=== PATIENT | female | born 1980 | race Caucasian/White ===

== ENCOUNTER 2016-09-09 11:32 | Observation (INO) | payer OTHER, MEDICAID ==
[~2016-09-09] VITALS: Ht 170.2 cm; Wt 74.7 kg
[2016-09-09] VITALS (9 sets, daily range): BP systolic 98–112; BP diastolic 62–82; PULSE 57–88; RESP 16–20; TEMP 96.1–98; O2SAT 96–100
[~2016-09-09 11:32] MED LIST: LURA20TA PO; XANA1TAB6 PO
[2016-09-09] MEDS ORDERED: LURA20TA PO (11:39)
[2016-09-09] MEDS ORDERED: ALPR.5 PO (11:39)
[2016-09-09] MEDS ORDERED: SERO50TA PO (11:39)
[2016-09-09] MEDS ORDERED: ONDANSETRON HCL 4 MG/2 ML VIAL IVP ONE (11:45)
[2016-09-09] MEDS ORDERED: HYDROmorphone HCL PF 1 MG/ML VIAL IVS ONE ×2 (11:45→13:30)
[2016-09-09] MEDS ORDERED: SODIUM CHLOR 0.9% 1000 ML INJ 1,000 ML IV ONE (11:45)
[2016-09-09] MEDS ORDERED: IOHEXOL 350 MG/ML 10 ML VIAL (for RAD DIAG) IV ONE (12:03)
[2016-09-09 12:20] LABS: AUTOMATED NEUTROPHIL # 4.2 TH/MM3 (1.8-7.7); BASOPHIL # 0.1 TH/MM3 (0-0.2); EOSINOPHIL # 0.1 TH/MM3 (0-0.4); EOSINOPHIL % 1.6 % (0.0-4.0); HEMATOCRIT 40.8 % (35.0-46.0); LYMPH % 23.6 % (9.0-44.0); LYMPHOCYTE # 1.6 TH/MM3 (1.0-4.8); MEAN CELL VOLUME 93.5 FL (80.0-100.0); MEAN CORPUSCULAR HEMOGLOBIN 31.6 PG (27.0-34.0); MEAN CORPUSCULAR HGB CONC 33.8 % (32.0-36.0); MONO % 9.6 % (0.0-8.0); NEUT % 64.2 % (16.0-70.0); RED BLOOD COUNT 4.36 MIL/MM3 (4.00-5.30); RED CELL DISTRIBUTION WIDTH 12.2 % (11.6-17.2); WHITE BLOOD COUNT 6.6 TH/MM3 (4.0-11.0)
--- NOTE | 2016-09-09 12:20 | PD ---
HPI Chief Complaint: Abdominal Pain Time Seen by Provider: 11:38 Travel History International Travel<30 days: No Contact w/Intl Traveler<30days: No Traveled to known affect area: No History of Present Illness HPI The patient was seen and examined in the presence of the nurse. This patient complains of right lower quadrant pain. Duration is 11 hours. Symptoms are severe. She called 911 and the paramedics brought her in screaming. No alleviating factors. She has had a hysterectomy and an appendectomy but her ovaries are in place. She does have history of ovarian cyst. She had 2 episodes of liquid runny diarrhea this morning. She vomited one time. She denies any fever or injury. She is reports compliance with her psychiatric medications. PFS Past Medical History Bipolar Disorder: Yes Depression: Yes Schizophrenia: Yes Tetanus Vaccination: < 5 Years Influenza Vaccination: No ?: Not LMP: 2006 Past Surgical History Appendectomy: Yes Hysterectomy: Yes (PARTIAL) Social History Alcohol Use: No Tobacco Use: Yes (1/2 PPD) Substance Use: No Allergies-Medications (Allergen,Severity, Reaction): Coded Allergies: Lortab (Verified Allergy, Severe, 09/09/16) Morphine (Verified Adverse Reaction, Severe, itching-n/v, 09/09/16) Reported Meds & Prescriptions Reported Meds & Active Scripts Active Reported Seroquel (Quetiapine Fumarate) 50 Mg Tab 50 Mg PO HS Xanax (Alprazolam) 0.5 Mg Tab 0.5 Mg PO Q8H PRN Latuda (Lurasidone) 20 Mg Tab 20 Mg PO HS Review of Systems General / Constitutional: No: Fever Eyes: No: Visual changes HENT: No: Headaches Cardiovascular: No: Chest Pain or Discomfort Respiratory: No: Shortness of Breath Gastrointestinal: Positive: Nausea, Vomiting, Diarrhea, Abdominal Pain Genitourinary: Positive: Pelvic Pain, No: Dysuria Musculoskeletal: No: Pain Skin: No Rash Neurologic: No: Weakness Psychiatric: No: Depression Endocrine: No: Polydipsia Hematologic/Lymphatic: No: Easy Bruising Physical Exam Narrative GENERAL: Well-nourished, well-developed patient screaming with abdominal pain. SKIN: Focused skin assessment reveals no rash and nodules. Skin is Warm and dry. HEAD: Atraumatic. Normocephalic. EYES: Pupils equal and round. No scleral icterus. No injection or drainage. ENT: No nasal bleeding or discharge. Mucous membranes pink and moist. NECK: Trachea midline. No JVD. CARDIOVASCULAR: Regular rate and rhythm. No murmur appreciated. RESPIRATORY: No accessory muscle use. Clear to auscultation. Breath sounds equal bilaterally. GASTROINTESTINAL: Abdomen soft but there is extreme tenderness in the right lower quadrant, nondistended. Hepatic and splenic margins not palpable. MUSCULOSKELETAL: No obvious deformities. No clubbing. No cyanosis. No edema. NEUROLOGICAL: Awake and alert. No obvious cranial nerve deficits. Motor grossly within normal limits. Normal speech. PSYCHIATRIC: Appropriate mood and affect; insight and judgment normal. Data Data Last Documented VS Vital Signs Date Time Temp Pulse Resp B/P Pulse Ox O2 Delivery O2 Flow Rate FiO2 09/09/16 16:00 77 16 112/67 98 Room Air 09/09/16 11:35 97.9 Orders Sodium Chlor 0.9% 1000 Ml Inj (Ns 1000 M (09/09/16 11:45) Ondansetron Inj (Zofran Inj) (09/09/16 11:45) Hydromorphone Pf Inj (Dilaudid Pf Inj) (09/09/16 11:45) Iv Access Insert/Monitor (09/09/16 11:38) Complete Blood Count With Diff (09/09/16 11:38) Comprehensive Metabolic Panel (09/09/16 11:38) Prothrombin Time / Inr (Pt) (09/09/16 11:38) Act Partial Throm Time (Ptt) (09/09/16 11:38) Ct Abd/Pel W Iv Contrast(Rout) (09/09/16 ) Urinalysis - C+S If Indicated (09/09/16 11:51) Ed Urine Pregnancytest Poc (09/09/16 11:51) Iohexol 350 Inj (Omnipaque 350 Inj) (09/09/16 12:03) Hydromorphone Pf Inj (Dilaudid Pf Inj) (09/09/16 13:30) Us Pelvis Comp W Dop Transvag (09/09/16 ) Alprazolam (Xanax) (09/09/16 16:15) Lurasidone (Latuda) (09/09/16 21:00) (Nf) Quetiapine (Seroquel) (09/09/16 21:00) Ketorolac Inj (Toradol Inj) (09/09/16 16:15) Admit Order (Ed Use Only) (09/09/16 16:09) Labs Laboratory Tests Test 09/09/16 09/09/16 12:10 12:40 Prothrombin Time 12.0 SEC Prothromb Time International 1.1 RATIO Ratio Activated Partial 27.7 SEC Thromboplast Time Sodium Level 139 MEQ/L Potassium Level 3.5 MEQ/L Chloride Level 107 MEQ/L Carbon Dioxide Level 24.5 MEQ/L Anion Gap 8 MEQ/L Blood Urea Nitrogen 10 MG/DL Creatinine 0.63 MG/DL Estimat Glomerular Filtration 108 ML/MIN Rate Random Glucose 80 MG/DL Calcium Level 8.2 MG/DL Total Bilirubin 0.7 MG/DL Aspartate Amino Transf 10 U/L (AST/SGOT) Alanine Aminotransferase 27 U/L (ALT/SGPT) Alkaline Phosphatase 58 U/L Total Protein 6.3 GM/DL Albumin 3.2 GM/DL White Blood Count 6.6 TH/MM3 Red Blood Count 4.36 MIL/MM3 Hemoglobin 13.8 GM/DL Hematocrit 40.8 % Mean Corpuscular Volume 93.5 FL Mean Corpuscular Hemoglobin 31.6 PG Mean Corpuscular Hemoglobin 33.8 % Concent Red Cell Distribution Width 12.2 % Platelet Count 81 TH/MM3 Mean Platelet Volume 11.5 FL Neutrophils (%) (Auto) 64.2 % Lymphocytes (%) (Auto) 23.6 % Monocytes (%) (Auto) 9.6 % Eosinophils (%) (Auto) 1.6 % Basophils (%) (Auto) 1.0 % Neutrophils # (Auto) 4.2 TH/MM3 Lymphocytes # (Auto) 1.6 TH/MM3 Monocytes # (Auto) 0.6 TH/MM3 Eosinophils # (Auto) 0.1 TH/MM3 Basophils # (Auto) 0.1 TH/MM3 CBC Comment AUTO DIFF Differential Comment AUTO DIFF CONFIRMED Platelet Estimate LOW Platelet Morphology Comment NORMAL Urine Collection Type CLEAN CATCH Urine Color YELLOW Urine Turbidity CLEAR Urine pH 5.0 Urine Specific [place] 1.035 Urine Protein NEG mg/dL Urine Glucose (UA) NEG mg/dL Urine Ketones 15 mg/dL Urine Occult Blood TRACE Urine Nitrite NEG Urine Bilirubin NEG Urine Leukocyte Esterase NEG Urine RBC 0-3 /hpf Urine WBC 0-2 /hpf Urine Squamous Epithelial > 8 /hpf Cells Microscopic Urinalysis Comment CULT NOT INDICATED Urine Collection Time 12:40 [facility] Medical Decision Making Medical Screen Exam Complete: Yes Emergency Medical Condition: Yes Medical Record Reviewed: Yes Differential Diagnosis Colitis, ovarian torsion, obstruction Narrative Course I have reviewed the patient's electronic medical record. She has been here one time before November 2014 for medication refill request. There is no documentation of prior surgeries. IV placed I gave her 1 mg IV Dilaudid and 4 mg IV Zofran for symptom relief I gave her 1 L normal saline IV bolus CBC is normal Metabolic profile is normal LFTs are normal Coagulation studies are normal Urinalysis will be cultured but does not seem suspicious for infection Urine is negative CT of abdomen and pelvis with IV contrast shows ovarian cystic disease but nothing emergent or would explain her significant pain I did an ultrasound to rule out torsion. Her is no evidence of torsion and is good bilateral ovarian flow of blood. After extensive workup etiology of her pain is unclear. She's had 2 Dilaudid doses and still writhing in pain. She cannot sit up let alone walk She will be a 23 hour observation for intractable abdominal pain I reviewed with hospitalist Diagnosis Primary Impression: Intractable right lower quadrant abdominal pain Admitting Information Admitting Physician Requests: Observation Kenneth Malloy MD September 09, 2016 11:50
[2016-09-09 12:32] LABS: CHLORIDE 107 MEQ/L (98-107); POTASSIUM 3.5 MEQ/L (3.5-5.1); SODIUM (NA) 139 MEQ/L (136-145)
[2016-09-09 12:35] LABS: ANION GAP 8 MEQ/L (5-15); BICARBONATE 24.5 MEQ/L (21.0-32.0)
[2016-09-09 12:36] LABS: APTT (PATIENT) 27.7 SEC (24.3-30.1); BLOOD UREA NITROGEN 10 MG/DL (7-18); INTERNATIONAL NORMALIZED RATIO 1.1 RATIO
[2016-09-09 12:39] LABS: ALT (GPT) 27 U/L (10-53); AST (GOT) 10 U/L (15-37); GLOMERULAR FILTRATION RATE 108 ML/MIN (>89)
[2016-09-09 12:40] LABS: TOTAL BILIRUBIN ADULT 0.7 MG/DL (0.2-1.0)
[2016-09-09 12:41] LABS: ALKALINE PHOSPHATASE 58 U/L (45-117)
--- NOTE | 2016-09-09 12:51 | RADHPO ---
EXAM DATE/TIME: 09/09/2016 11:49 [facility] COMPARISON: No previous studies available for comparison. INDICATIONS : Right lower quadrant pain. Painful urination. IV CONTRAST: 85 cc Omnipaque 350 (iohexol) IV ORAL CONTRAST: No oral contrast ingested. RADIATION DOSE: 10.86 CTDIvol (mGy) MEDICAL HISTORY : Schizophrenia. SURGICAL HISTORY : Appendectomy. Hysterectomy. ENCOUNTER: Initial ACUITY: 1 day PAIN SCALE: 7/10 LOCATION: Right lower quadrant TECHNIQUE: Volumetric scanning of the abdomen and pelvis was performed. Using automated exposure control and ad justment of the mA and/or kV according to patient size, radiation dose was kept as low as reasonably achievable to obtain optimal diagnostic quality images. FINDINGS: LOWER LUNGS: The visualized lower lungs are clear. LIVER: Homogeneous density without lesion. There is no dilation of the biliary tree. No calcified gallston es. SPLEEN: Normal size without lesion. PANCREAS: Within normal limits. KIDNEYS: Normal in size and shape. There is no mass, stone or hydronephrosis. ADRENAL GLANDS: Within normal limits. VASCULAR: There is no aortic aneurysm. BOWEL/MESENTERY: The stomach, small bowel, and colon demonstrate no acute abnormality. There is no free intraperitone al air or fluid. ABDOMINAL WALL: Within normal limits. RETROPERITONEUM: There is no lymphadenopathy. BLADDER: No wall thickening or mass. REPRODUCTIVE: Small bilateral adnexal cysts are seen felt to be ovarian in origin. These measure 2.4 cm on the left and 1.6 cm on the right. No free fluid. Uterus is surgically absent. INGUINAL: There is no lymphadenopathy or hernia. MUSCULOSKELETAL: Within normal limits for patient age. CONCLUSION: 1. No acute abnormality. 2. Bilateral adnexal cysts likely ovarian in nature. These measure 2.4 cm on the left and 1.6 cm on t he right. No free fluid. 3. Prior hysterectomy. Sanya Bolanos Jr., MD on September 09, 2016 at 12:47 Board Certified Radiologist. This report was verified electronically.
[2016-09-09 12:56] LABS: BLOOD, URINE TRACE (NEG); GLUCOSE,URINE NEG (NEG); KETONE, URINE 15 mg/dL (NEG); NITRITE,URINE NEG (NEG)
[2016-09-09 13:01] LABS: HEMO FLAGS AUTO DIFF
[2016-09-09 13:05] LABS: METHOD OF COLLECTION CLEAN CATCH; URINE COLOR YELLOW (YELLW/STRAW); WBC, URINE 0-2 /hpf (0-5)
[2016-09-09 13:06] LABS: COMMENT (UR) CULT NOT INDICATED; CULTURE IF INDICATED CULT NOT INDICATED; RBC, URINE 0-3 /hpf (0-3); SQUAMOUS EPITHELIAL CELL URINE > 8 /hpf (0-5)
[2016-09-09 13:25] LABS: PLATELET COUNT 81 TH/MM3 (150-450); PLATELET ESTIMATE SMEAR LOW (NORMAL); SCAN/DIFF AUTO DIFF CONFIRMED
[2016-09-09 13:26] LABS: PLATELET MORPHOLOGY NORMAL (NORMAL)
--- NOTE | 2016-09-09 15:41 | RADHPO ---
EXAM DATE/TIME: 09/09/2016 14:28 [facility] COMPARISON: No previous studies available for comparison. INDICATIONS : Pelvic pain. MEDICAL HISTORY : Pelvic pain. Bipolar disorder. Schizophrenia. SURGICAL HISTORY : Hysterectomy. Appendectomy. ENCOUNTER: Initial ACUITY: 4-6 days PAIN SCORE: 10/10 LOCATION: Bilateral pelvis MEASUREMENTS: UTERUS: Surgically absent RIGHT OVARY: 3.2 x 1.7 x 2.0 cm LEFT OVARY: 4.5 x 2.2 x 2.4 cm FINDINGS: The uterus is surgical absent. Small bilateral follicular cysts are present. No adnexal masses are id entified. Normal Doppler flow is present bilaterally. CONCLUSION: 1. Hysterectomy 2. No evidence of mass or torsion Zach Dean MD on September 09, 2016 at 15:38 Board Certified Radiologist. This report was verified electronically.
[2016-09-09] MEDS ORDERED: ALPRAZolam 0.5 MG TAB PO PRN (16:15)
[2016-09-09] MEDS ORDERED: ACETAMINOPHEN 325 MG TAB PO PRN (16:15)
[2016-09-09] MEDS ORDERED: ONDANSETRON HCL 4 MG/2 ML VIAL IVP PRN (16:15)
[2016-09-09] MEDS ORDERED: NALOXONE HCL 0.4 MG/ML AMP IV PRN (16:15)
[2016-09-09] MEDS ORDERED: SODIUM CHLORIDE 0.9% FLUSH 10 ML FLUSH IV FLUSH PRN (16:15)
[2016-09-09] MEDS ORDERED: KETOROLAC TROMETHAMINE 30 MG/ML (IVP) VIAL IV PUSH ONE (16:15)
[2016-09-09] MEDS ORDERED: PILL SPLITTER OTHER PRN (16:30)
--- NOTE | 2016-09-09 16:36 | HHI.HP ---
[facility] Service [facility] Primary Care Physician Jarrod Denise MD Admission Diagnosis intract RLQ pain Diagnoses: (1) Intractable right lower quadrant abdominal pain Diagnosis: Principal Chief Complaint: abdominal pain Travel History International Travel<30 Days: No Contact w/Intl Traveler <30 Da: No Traveled to Known Affected Are: No History of Present Illness Written by Jocelyn Galdamez PA-C acting as scribe for Dr. Rodrigues on 09/09/16 at ~ 1630. 35-year-old female with history of bipolar disorder, depression, schizoaffective presents with complaint of abdominal pain. at bedside. Patient states pain started last night 11 PM. Pain came on suddenly. She indicates pain over the right pelvis radiating upward to the right lower quadrant. She states she woke up at 10am this morning and went to the bathroom and states it hurt to have a bowel movement as well as to urinate. She states she had an episode of diarrhea last night as well as this morning. She states she fell over from her chair today because the pain was so bad. She admits to chills but denies any fevers. Denies any nausea or vomiting. She states "my ovaries have always hurt" but indicates this was worse. She states she had pain when the pelvic ultrasound was performed, but denies any vaginal pain. She has chronic vaginal discharge but denies any change in this recently. Denies any pain with intercourse. History of partial hysterectomy and appendectomy. Review of Systems Except as stated in HPI: all other systems reviewed are Neg Past Family Social History Past Medical History Bipolar disorder Depression Schizophrenia Past Surgical History Appendectomy Partial hysterectomy Tubal ligation Reported Medications Reported Seroquel (Quetiapine Fumarate) 50 Mg Tab 50 Mg PO HS Xanax (Alprazolam) 0.5 Mg Tab 0.5 Mg PO Q8H PRN Latuda (Lurasidone) 20 Mg Tab 20 Mg PO HS Doxepin Ranitidine Allergies: Coded Allergies: Lortab (Verified Allergy, Severe, 09/09/16) Morphine (Verified Adverse Reaction, Severe, itching-n/v, 09/09/16) Family History Mother of metastatic breast cancer. Social History Patient smokes one half pack per day of cigarettes; started smoking at age 15. Denies alcohol use. Smokes marijuana. Physical Exam Vital Signs Vital Signs Date Time Temp Pulse Resp B/P Pulse Ox O2 Delivery O2 Flow Rate FiO2 09/09/16 16:00 77 16 112/67 98 Room Air 09/09/16 14:54 74 18 107/65 96 Room Air 09/09/16 13:57 16 09/09/16 13:31 76 20 103/66 100 09/09/16 12:48 88 18 111/77 98 Room Air 09/09/16 12:26 16 09/09/16 12:20 73 16 107/62 100 Room Air 09/09/16 11:35 97.9 82 18 105/82 98 Physical Exam GENERAL: This is a well-nourished, well-developed patient crying in pain. SKIN: No rashes, ecchymoses or lesions. Warm and dry. HEAD: Atraumatic. Normocephalic. NECK: Trachea midline. CARDIOVASCULAR: Regular rate and rhythm without murmurs, gallops, or rubs. RESPIRATORY: Clear to auscultation. Breath sounds equal bilaterally. No wheezes , rales, or rhonchi. GASTROINTESTINAL: Hyperactive bowel sounds. Abdomen soft, nondistended. Tender over right lower quadrant. MUSCULOSKELETAL: No lower extremity edema. NEUROLOGICAL: Awake and alert. Normal speech. PSYCHIATRIC: Crying. Normal judgement. Laboratory Laboratory Tests Test 09/09/16 09/09/16 12:10 12:40 Prothrombin Time 12.0 Prothromb Time International 1.1 Ratio Activated Partial 27.7 Thromboplast Time Sodium Level 139 Potassium Level 3.5 Chloride Level 107 Carbon Dioxide Level 24.5 Anion Gap 8 Blood Urea Nitrogen 10 Creatinine 0.63 Estimat Glomerular Filtration 108 Rate Random Glucose 80 Calcium Level 8.2 Total Bilirubin 0.7 Aspartate Amino Transf 10 (AST/SGOT) Alanine Aminotransferase 27 (ALT/SGPT) Alkaline Phosphatase 58 Total Protein 6.3 Albumin 3.2 White Blood Count 6.6 Red Blood Count 4.36 Hemoglobin 13.8 Hematocrit 40.8 Mean Corpuscular Volume 93.5 Mean Corpuscular Hemoglobin 31.6 Mean Corpuscular Hemoglobin 33.8 Concent Red Cell Distribution Width 12.2 Platelet Count 81 Mean Platelet Volume 11.5 Neutrophils (%) (Auto) 64.2 Lymphocytes (%) (Auto) 23.6 Monocytes (%) (Auto) 9.6 Eosinophils (%) (Auto) 1.6 Basophils (%) (Auto) 1.0 Neutrophils # (Auto) 4.2 Lymphocytes # (Auto) 1.6 Monocytes # (Auto) 0.6 Eosinophils # (Auto) 0.1 Basophils # (Auto) 0.1 CBC Comment AUTO DIFF Differential Comment AUTO DIFF CONFIRMED Platelet Estimate LOW Platelet Morphology Comment NORMAL Urine Collection Type CLEAN CATCH Urine Color YELLOW Urine Turbidity CLEAR Urine pH 5.0 Urine Specific [place] 1.035 Urine Protein NEG Urine Glucose (UA) NEG Urine Ketones 15 Urine Occult Blood TRACE Urine Nitrite NEG Urine Bilirubin NEG Urine Leukocyte Esterase NEG Urine RBC 0-3 Urine WBC 0-2 Urine Squamous Epithelial > 8 Cells Microscopic Urinalysis Comment CULT NOT INDICATED Urine Collection Time 12:40 Result Diagram: 09/09/16 1240 09/09/16 1210 Imaging Last Impressions Abdomen/Pelvis/Transvag US 09/09/16 0000 Signed Impressions: Service Date/Time: Friday, September 09, 2016 14:28 - CONCLUSION: 1. Hysterectomy 2. No evidence of mass or torsion Zach Dean MD Abdomen/Pelvis CT 09/09/16 0000 Signed Impressions: Service Date/Time: Friday, September 09, 2016 11:49 - CONCLUSION: 1. No acute abnormality. 2. Bilateral adnexal cysts likely ovarian in nature. These measure 2.4 cm on the left and 1.6 cm on the right. No free fluid. 3. Prior hysterectomy. Sanya Bolanos Jr., MD Assessment and Plan Assessment and Plan 35-year-old female with: Intractable right lower quadrant pain: White blood cell count normal. LFTs normal. CT abdomen and pelvis with bilateral ovarian cysts measuring 2.4 cm on the left and 1.6 cm on the right. No free fluid. Transvaginal ultrasound shows no evidence of torsion or mass. Hysterectomy evident. UA reviewed without infection. Differentials include ovarian cyst versus ruptured ovarian cysts versus gastroenteritis. -Continue pain control -IV fluids Thrombocytopenia: Platelet count of 81. No previous labs for comparison. Could be attributed to doxepin use. Chronic medical conditions include bipolar disorder, depression, schizophrenia: Continue home medications GI prophylaxis: Continue home ranitidine DVT prevention: SCDs This note was transcribed by scribe [Jocelyn Galdamez PA-C]. I, Dr. So Rodrigues personally performed the history, physical exam, and medical decision making; and confirmed the accuracy of the information in the transcribed note. Authenticated by Dr. So Rodrigues on 09/09/16 at 1630. Discussed Condition With ED physician, patient Jocelyn Galdamez September 09, 2016 16:36 So Rodrigues MD September 09, 2016 19:15
[2016-09-09] MEDS: D5-1/2 NS + KCL 20 MEQ INJ 1,000 ML IV SCH (17:37)
[2016-09-09] MEDS ORDERED: DICY20TA10 PO (17:42)
[2016-09-09] MEDS ORDERED: RANI150T PO ×2 (17:43→22:22)
[2016-09-09] MEDS: HYDROmorphone HCL PF 1 MG/ML VIAL IV PUSH PRN ×2 (18:23→23:03)
[2016-09-09] MEDS: QUEtiapine FUMARATE 25 MG TAB PO SCH (20:15)
[2016-09-09] MEDS: LURASIDONE 40 MG TAB PO SCH (20:17)
[2016-09-09] MEDS: SODIUM CHLORIDE 0.9% FLUSH 10 ML FLUSH IV FLUSH SCH (20:17)
[2016-09-09] MEDS: oxyCODONE/ACETAMINOPHEN 7.5 MG/325 MG TAB PO PRN (20:25)
[2016-09-09] MEDS ORDERED: DOXE25CA2 PO (22:22)
[2016-09-09] MEDS ORDERED: DOXEPIN HCL 25 MG CAP PO PRN (22:45)
[2016-09-09] MEDS: FAMOTIDINE 20 MG TAB PO SCH (23:01)
[2016-09-10] VITALS: BP 142/74; PULSE 60; RESP 20; TEMP 97.6; O2SAT 93
[2016-09-10] MEDS: oxyCODONE/ACETAMINOPHEN 7.5 MG/325 MG TAB PO PRN ×2 (02:31→14:58)
[2016-09-10] MEDS: D5-1/2 NS + KCL 20 MEQ INJ 1,000 ML IV SCH (02:35)
[2016-09-10] MEDS: HYDROmorphone HCL PF 1 MG/ML VIAL IV PUSH PRN ×5 (05:16→21:36)
[2016-09-10 08:42] VITALS: BP 96/61; PULSE 105; RESP 18; TEMP 97.2; O2SAT 96
[2016-09-10] MEDS: FAMOTIDINE 20 MG TAB PO SCH ×2 (09:09→21:37)
[2016-09-10] MEDS: SODIUM CHLORIDE 0.9% FLUSH 10 ML FLUSH IV FLUSH SCH ×2 (09:09→21:38)
--- NOTE | 2016-09-10 10:18 | HHI.PR ---
Subjective Remarks Patient in the bed. She is screaming, says she has pain, says she received pain meds and feels much better, however she say she wants the ovaries to be taken out. She says she is not able to eat at all. She complaints of nausea. Denies fever or chills. No vomiting, diarrhea or constipation. Objective Vitals Vital Signs Date Time Temp Pulse Resp B/P Pulse Ox O2 Delivery O2 Flow Rate FiO2 09/10/16 08:42 97.2 105 18 96/61 96 09/10/16 00:00 97.6 60 20 142/74 93 09/09/16 20:00 98.0 57 20 98/69 98 09/09/16 18:52 16 09/09/16 18:52 16 09/09/16 18:46 96.1 70 16 102/62 96 09/09/16 17:40 69 16 102/69 100 Room Air 09/09/16 16:00 77 16 112/67 98 Room Air 09/09/16 14:54 74 18 107/65 96 Room Air 09/09/16 13:57 16 09/09/16 13:31 76 20 103/66 100 09/09/16 12:48 88 18 111/77 98 Room Air 09/09/16 12:26 16 09/09/16 12:20 73 16 107/62 100 Room Air 09/09/16 11:35 97.9 82 18 105/82 98 I/O 09/09/16 09/09/16 09/09/16 09/10/16 09/10/16 09/10/16 07:00 15:00 23:00 07:00 15:00 23:00 Intake Total 1000 ml 240 ml 1280 ml Output Total 300 ml Balance 700 ml 240 ml 1280 ml Intake Oral 240 ml 480 ml IV Total 1000 ml 800 ml Output Urine Total 300 ml # Voids 2 1 3 # Bowel Movements 0 0 0 Result Diagram: 09/09/16 1240 09/09/16 1210 Imaging Last Impressions Abdomen/Pelvis/Transvag US 09/09/16 0000 Signed Impressions: Service Date/Time: Friday, September 09, 2016 14:28 - CONCLUSION: 1. Hysterectomy 2. No evidence of mass or torsion Zach Dean MD Abdomen/Pelvis CT 09/09/16 0000 Signed Impressions: Service Date/Time: Friday, September 09, 2016 11:49 - CONCLUSION: 1. No acute abnormality. 2. Bilateral adnexal cysts likely ovarian in nature. These measure 2.4 cm on the left and 1.6 cm on the right. No free fluid. 3. Prior hysterectomy. Sanya Bolanos Jr., MD Objective Remarks GENERAL: This is a well-nourished, well-developed patient crying in pain asking her ovaries to be taken out. SKIN: No rashes, ecchymoses or lesions. Warm and dry. HEAD: Atraumatic. Normocephalic. NECK: Trachea midline. CARDIOVASCULAR: Regular rate and rhythm without murmurs, gallops, or rubs. RESPIRATORY: Clear to auscultation. Breath sounds equal bilaterally. No wheezes , rales, or rhonchi. GASTROINTESTINAL: Hyperactive bowel sounds. Abdomen soft, nondistended. Tender over right lower quadrant. MUSCULOSKELETAL: No lower extremity edema. NEUROLOGICAL: Awake and alert. Normal speech. PSYCHIATRIC: Crying. Normal judgement. A/P Problem List: (1) Intractable right lower quadrant abdominal pain ICD Code: R10.31 Status: Acute Assessment and Plan 35-year-old female with: Intractable right lower quadrant pain: White blood cell count normal. LFTs normal. CT abdomen and pelvis with bilateral ovarian cysts measuring 2.4 cm on the left and 1.6 cm on the right. No free fluid. Transvaginal ultrasound shows no evidence of torsion or mass. Hysterectomy evident. UA reviewed without infection. Differentials include ovarian cyst versus ruptured ovarian cysts versus gastroenteritis. Patient is asking to take her ovaries out -Continue pain control -IV fluids Thrombocytopenia: Platelet count of 81. No previous labs for comparison. Could be attributed to doxepin use. Chronic medical conditions include bipolar disorder, depression, schizophrenia: Continue home medications. Will consult psychiatry as patient with psychosis at this time GI prophylaxis: Continue home ranitidine DVT prevention: SCDs Discussed Condition With patient, nurse Ashley Panda MD September 10, 2016 10:18
[2016-09-10 12:25] VITALS: BP 97/60; PULSE 97; RESP 18; TEMP 97.6; O2SAT 95
[2016-09-10 17:06] VITALS: BP 114/81; PULSE 89; RESP 18; TEMP 97.5; O2SAT 99
[2016-09-10 20:00] VITALS: BP 116/80; PULSE 90; RESP 20; TEMP 97.9; O2SAT 96
[2016-09-10] MEDS: QUEtiapine FUMARATE 25 MG TAB PO SCH (21:36)
[2016-09-10] MEDS: LURASIDONE 40 MG TAB PO SCH (21:37)
[2016-09-11] VITALS: BP 103/73; PULSE 54; RESP 20; TEMP 97; O2SAT 96
[2016-09-11] MEDS: oxyCODONE/ACETAMINOPHEN 7.5 MG/325 MG TAB PO PRN ×2 (03:05→07:59)
[2016-09-11] MEDS: HYDROmorphone HCL PF 1 MG/ML VIAL IV PUSH PRN (05:24)
[2016-09-11] MEDS ORDERED: HYDR-3133 PO (07:49)
--- NOTE | 2016-09-11 07:53 | HHI.DS ---
Discharge Summary Admission Date September 09, 2016 at 16:10 Discharge Date: September 11, 2016 Admitting Diagnosis intract RLQ pain (1) Intractable right lower quadrant abdominal pain ICD Code: R10.31 Diagnosis: Principal Procedures none Brief History - From Admission Written by Jocelyn Galdamez PA-C acting as scribe for Dr. Rodrigues on 09/09/16 at ~ 1630. 35-year-old female with history of bipolar disorder, depression, schizoaffective presents with complaint of abdominal pain. at bedside. Patient states pain started last night 11 PM. Pain came on suddenly. She indicates pain over the right pelvis radiating upward to the right lower quadrant. She states she woke up at 10am this morning and went to the bathroom and states it hurt to have a bowel movement as well as to urinate. She states she had an episode of diarrhea last night as well as this morning. She states she fell over from her chair today because the pain was so bad. She admits to chills but denies any fevers. Denies any nausea or vomiting. She states "my ovaries have always hurt" but indicates this was worse. She states she had pain when the pelvic ultrasound was performed, but denies any vaginal pain. She has chronic vaginal discharge but denies any change in this recently. Denies any pain with intercourse. History of partial hysterectomy and appendectomy. CBC/BMP: 09/09/16 1240 09/09/16 1210 Significant Findings Laboratory Tests Test 09/09/16 09/09/16 12:10 12:40 Prothrombin Time 12.0 SEC (9.8-11.6) Calcium Level 8.2 MG/DL (8.5-10.1) Aspartate Amino Transf 10 U/L (15-37) (AST/SGOT) Total Protein 6.3 GM/DL (6.4-8.2) Albumin 3.2 GM/DL (3.4-5.0) Platelet Count 81 TH/MM3 (150-450) Mean Platelet Volume 11.5 FL (7.0-11.0) Monocytes (%) (Auto) 9.6 % (0.0-8.0) Platelet Estimate LOW (NORMAL) Urine Ketones 15 mg/dL (NEG) Urine Occult Blood TRACE (NEG) Urine Squamous Epithelial > 8 /hpf (0-5) Cells Imaging Last Impressions Abdomen/Pelvis/Transvag US 09/09/16 0000 Signed Impressions: Service Date/Time: Friday, September 09, 2016 14:28 - CONCLUSION: 1. Hysterectomy 2. No evidence of mass or torsion Zach Dean MD Abdomen/Pelvis CT 09/09/16 0000 Signed Impressions: Service Date/Time: Friday, September 09, 2016 11:49 - CONCLUSION: 1. No acute abnormality. 2. Bilateral adnexal cysts likely ovarian in nature. These measure 2.4 cm on the left and 1.6 cm on the right. No free fluid. 3. Prior hysterectomy. Sanya Bolanos Jr., MD PE at Discharge GENERAL: This is a well-nourished, well-developed patient crying in pain asking her ovaries to be taken out. SKIN: No rashes, ecchymoses or lesions. Warm and dry. HEAD: Atraumatic. Normocephalic. NECK: Trachea midline. CARDIOVASCULAR: Regular rate and rhythm without murmurs, gallops, or rubs. RESPIRATORY: Clear to auscultation. Breath sounds equal bilaterally. No wheezes , rales, or rhonchi. GASTROINTESTINAL: Hyperactive bowel sounds. Abdomen soft, nondistended. Tender over right lower quadrant. MUSCULOSKELETAL: No lower extremity edema. NEUROLOGICAL: Awake and alert. Normal speech. PSYCHIATRIC: Crying. Normal judgement. Pt update on day of discharge Feels much better. Less abdominal pain. No n/v/d/c. Seen by psych Dr Shaffer. Discussed with Dr Shaffer, pt with poss malingering. Hospital Course 35-year-old female with: Intractable right lower quadrant pain: White blood cell count normal. LFTs normal. CT abdomen and pelvis with bilateral ovarian cysts measuring 2.4 cm on the left and 1.6 cm on the right. No free fluid. Transvaginal ultrasound shows no evidence of torsion or mass. Hysterectomy evident. UA reviewed without infection. Differentials include ovarian cyst versus ruptured ovarian cysts versus gastroenteritis. Patient is asking to take her ovaries out -Continue pain control -IV fluids Thrombocytopenia: Platelet count of 81. No previous labs for comparison. Could be attributed to doxepin use. Chronic medical conditions include bipolar disorder, depression, schizophrenia: Continue home medications.Consult psychiatry, recommends atarax at DC. Patient is cleared for DC. To follow up with PCP and consultants as OP. GI prophylaxis: Continue home ranitidine DVT prevention: SCDs Improved. Was DC in stable condition to follow up as OP with PCP and consultants. Pt Condition on Discharge: Stable Discharge Disposition: Discharge Home Discharge Time: > 30 minutes Discharge Instructions DIET: Follow Instructions for: As Tolerated, No Restrictions Activities you can perform: Regular-No Restrictions Follow up Referrals: PCP Follow-up - 3-5 Days New Medications: Hydroxyzine HCl (Hydroxyzine HCl) 25 Mg Tab 25 MG PO HS Anxiety #30 Ref 0 TAB Continued Medications: Alprazolam (Xanax) 0.5 Mg Tab 0.5 MG PO Q8H PRN ANXIETY Ref 0 TAB Dicyclomine (Dicyclomine) 20 Mg Tab 20 MG PO QID Bowel Management #120 Ref 0 TAB Doxepin (Doxepin) 25 Mg Cap 25 MG PO QID PRN ABDOMINAL CRAMPING #60 Ref 0 CAP Lurasidone (Latuda) 20 Mg Tab 20 MG PO HS #30 Ref 0 TAB Quetiapine (Seroquel) 50 Mg Tab 50 MG PO HS #30 Ref 0 TAB Ranitidine (Ranitidine) 150 Mg Tab 150 MG PO BID Heartburn Management #60 Ref 0 TAB Discontinued Medications: Ranitidine (Ranitidine) 150 Mg Tab 150 MG PO BID Heartburn Management #60 Ref 0 TAB Ashley Panda MD September 11, 2016 07:53
[2016-09-11] MEDS: FAMOTIDINE 20 MG TAB PO SCH (07:59)
[2016-09-11 08:14] VITALS: BP 102/69; PULSE 68; RESP 18; TEMP 97.4; O2SAT 98
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
== END 2016-09-11 09:10 | disposition home or self-care (01) ==
LOC: PHED 11:32 → PHEDA 16:10 → PH3A 17:52
PROVIDERS: ADMIT Hospitalist; ATTEND Hospitalist
DX: R10.31 Right lower quadrant pain (principal); D69.6 Thrombocytopenia, unspecified; N83.201 Unspecified ovarian cyst, right side; N83.202 Unspecified ovarian cyst, left side; F31.9 Bipolar disorder, unspecified; F20.9 Schizophrenia, unspecified; F12.90 Cannabis use, unspecified, uncomplicated; F41.9 Anxiety disorder, unspecified; Z72.0 Tobacco use; Z79.899 Other long term (current) drug therapy; Z90.710 Acquired absence of both cervix and uterus
CPT/HCPCS: 74177; 76830; 76856; 80053; 81001; 84703; 85025; 85610; 85730; 93975; 96361; 96374; 96375; 96376; 99285; G0378; J1170; J1885; J2405; J3480; J7030; Q9967